=== PATIENT | female | born 1950 | race Caucasian/White ===

== ENCOUNTER 2016-08-31 09:27 | Day surgery (SDC) | payer MEDICARE, OTHER ==
[~2016-08-31 09:27] MED LIST: CEFAZOLIN 1 GM/D5W RTU 1 GM/50 ML RTUPB IV PRN
[2016-08-31] MEDS ORDERED: NORMAL SALINE INJ/PF 0.9% 10 ML SDV ONE (10:08)
[2016-08-31] MEDS ORDERED: POLYMYXIN B SULFATE INJ 500000 UNIT VIAL ONE (10:08)
[2016-08-31] MEDS ORDERED: BACITRACIN INJ 50,000 UNIT VIAL ONE (10:09)
[2016-08-31] MEDS ORDERED: LIDOCAINE 2% INJ (20 MG/ML) 20 ML MDV ONE (10:16)
[2016-08-31] MEDS ORDERED: BUPIVACAINE HCL 0.5 % INJ/PF 30 ML SDV ONE (10:16)
[2016-08-31] MEDS ORDERED: MIDAZOLAM 2 MG/2 ML INJ ONE (10:18)
[2016-08-31] MEDS ORDERED: FENTANYL CITRATE INJ/PF 100 MCG/2 ML AMPUL ONE (10:18)
[2016-08-31] MEDS ORDERED: PROPOFOL INJ 200 MG/20 ML VIAL IV ONE (10:19)
[2016-08-31] MEDS ORDERED: CLINDAMYCIN 600 MG/D5W RTU 600 MG/50 ML RTUPB IV PRN (10:23)
[2016-08-31] MEDS ORDERED: BUPIVACAINE INJ/PF LIPOSOME/PF 266 MG/20 ML SDV ONE (10:41)
[2016-08-31] MEDS ORDERED: DEXAMETHASONE SOD PHOSPHATE INJ 4 MG/1 ML VIAL ONE (14:46)
--- NOTE | 2016-08-31 15:26 | RADIOLOGY REPORT (SQ) ---
EXAM DESCRIPTION: NO CHG FLUORO; FOOT RIGHT 2 VIEWS COMPLETED DATE/TIME: 08/31/2016 3:14 pm REASON FOR STUDY: HAMMER TOE CORRECTION COMPARISON: None. FLUOROSCOPY TIME: 0.05 seconds LIMITATIONS: None. PROCEDURE: Single postoperative image saved on PACs FINDINGS: Osteotomy changes are seen involving the 4th digit. IMPRESSION: Osteotomy changes to the 4th digit. COMMENT: PQRS 6045F: Fluoroscopy time of the procedure is documented in the report. TECHNICAL DOCUMENTATION: JOB ID: [id number] [employer]- All Rights Reserved
--- NOTE | 2016-08-31 15:26 | RADIOLOGY REPORT (SQ) ---
EXAM DESCRIPTION: NO CHG FLUORO; FOOT RIGHT 2 VIEWS COMPLETED DATE/TIME: 08/31/2016 3:14 pm REASON FOR STUDY: HAMMER TOE CORRECTION COMPARISON: None. FLUOROSCOPY TIME: 0.05 seconds LIMITATIONS: None. PROCEDURE: Single postoperative image saved on PACs FINDINGS: Osteotomy changes are seen involving the 4th digit. IMPRESSION: Osteotomy changes to the 4th digit. COMMENT: PQRS 6045F: Fluoroscopy time of the procedure is documented in the report. TECHNICAL DOCUMENTATION: JOB ID: [id number] [employer]- All Rights Reserved
--- NOTE | 2016-09-01 11:02 | [facility]ARE OPERATIVE REPORT E ---
[facility] Operative Report NAME: SVETA BE AGE: 66Y DATE OF SURGERY: ROOM: PREOPERATIVE DIAGNOSIS: Hammertoe of the fourth toe of the right foot. POSTOPERATIVE DIAGNOSES: 1. Hammertoe of the fourth toe of the right foot. 2. Acute fracture of the middle phalanx of the fourth toe of the right foot. OPERATION: Hammertoe operation with excision of fracture fragment. SURGEON: SOILA REGALADO DPM [employer]ET[employer] SPECIALIST: KWABENA UNDERWOOD DPM INDICATIONS: On 08/31/2016 patient was admitted to [facility] with complaint of a painful right toe. Patient indicated that she had banged her toe yesterday and appears today with an acutely swollen fourth toe. PROCEDURE: The patient was taken to the operating room where, following induction of intravenous sedation and regional local anesthesia, a fluoroscopic study was performed of the right foot with attention paid to the fourth toe where there appeared to be a fracture of the lateral middle phalanx base. Being interarticular, it was felt that it was okay to go ahead and proceed with the original procedure to remove any fracture fragment that may be present. An Esmarch was placed on the patient's right foot. Tourniquet was inflated to a level of 250 mmHg. Esmarch was removed. The following procedure was performed. Attention was directed to the dorsal aspect of the patient's fourth toe where a 2 cm linear incision was placed centered over the proximal interphalangeal joint. It was deepened through the subcutaneous tissue and superficial fascia. All bleeding vessels were clamped and ligated with a Bovie as necessary for hemostasis. Incision was then further deepened via sharp and blunt dissection down to the longus tensor tendon which was transected transversely, retracted proximally for preservation. The collateral ligaments were sharply incised thus bringing into view the head of the proximal phalanx which was then osteotomized approximately 1 cm proximal to its articular surface. All sharp edges were rasped smooth. The plantar plate was sharply excised. The base of the middle phalanx was examined. There was noted to be an interarticular fracture of the lateral portion of the base of the middle phalanx. Utilizing an osteotome this was freed from the main portion of the middle phalanx and removed. It was noted that once this fragment was removed that the entire base of the middle phalanx had been fractured and the remaining portion of articular cartilage was then removed. It was felt that this should not have any adverse effects on the original procedure. At that time the area was flushed with copious amounts of sterile antibiotic solution and inspected for any soft tissue or osseous debris with none being noted. All sharp osseous edges were rasped smooth as needed prior to flushing. At that time the dorsal capsular tendinous structures of the middle phalanx were then interposed into the proximal phalangeal joint and sutured to the remaining portion of the plantar plate and long flexor tendon. The extensor tendon was then sutured as needed for closure and alignment of the fourth toe. The fourth toe was loaded. The toe was noted to be in good anatomic alignment. Fluoroscopic studies were obtained. There was noted to be no apparent bone fragments remaining, and the correction looked to be very good at this time. At that time the skin incision was then coapted and maintained with interrupted horizontal mattress suture of 5-0 nylon. About 1 mL of 4 mg/mL of Decadron was then injected periwound. Sterile dressings consisting of Hardik silk, 4 x 4s, Teresa, Kerlix, and Coban was applied to the patient's right foot. Betadine was applied to the gauze of the third toe. The tourniquet was rapidly deflated. Capillary filling time was noted to be instantaneous to all digits. The patient appeared to tolerate the surgery and anesthesia well and was later taken to the recovery room to be further monitored by the Anesthesia Department. DICTATING PHYSICIAN: SOILA REGALADO DPM [id number] PHY#: [id number] ID: [id number] JOB#: [id number] ACCT: [id number] cc:SOILA REGALADO DPM > MTDD
== END 2016-08-31 12:46 | disposition home or self-care (01) ==
LOC: SC 09:27
PROVIDERS: ATTEND Preventive Medicine Undersea and Hyperbaric Medicine
PROC: 0QBQ0ZZ Excision of Right Toe Phalanx, Open Approach (ICD-10-PCS; 2016-08-31)
PROC: 0SRP0JZ Replacement of Right Toe Phalangeal Joint with Synthetic Substitute, Open Approach (ICD-10-PCS; principal; 2016-08-31 10:45)
DX: M20.41 Other hammer toe(s) (acquired), right foot (principal); S92.521A Displaced fracture of middle phalanx of right lesser toe(s), initial encounter for closed fracture; X58.XXXA Exposure to other specified factors, initial encounter; M19.90 Unspecified osteoarthritis, unspecified site; E11.9 Type 2 diabetes mellitus without complications; D64.9 Anemia, unspecified; K21.9 Gastro-esophageal reflux disease without esophagitis; I10 Essential (primary) hypertension; Z91.041 Radiographic dye allergy status; Z88.5 Allergy status to narcotic agent; Z79.84 Long term (current) use of oral hypoglycemic drugs; Z79.899 Other long term (current) drug therapy
CPT/HCPCS: 82962; 73620; 28285; 28005; J2250; J3490 ×4; J1100; J3010; J2704; 01480; C9290; J0690